=== PATIENT | female | born 1995 ===

== ENCOUNTER → 2023-01-09 07:49 | Outpatient (BNVA) | payer MEDICAID, SELFPAY | PROVIDERS: PCP Registered Nurse; Visit Provider Nurse Practitioner Family | DX: G47.19 Other hypersomnia (principal); R06.83 Snoring | CPT/HCPCS: 99202 ==

== ENCOUNTER → 2023-02-26 13:56 | Outpatient (REF) | payer MEDICAID, SELFPAY | LOC: HO.SL 13:56 | PROVIDERS: Visit Provider Nurse Practitioner Family | DX: G47.19 Other hypersomnia (principal); R06.83 Snoring | CPT/HCPCS: 95806 ==

== ENCOUNTER → 2023-02-26 14:21 | Outpatient (BNV) | payer MEDICAID, SELFPAY | PROVIDERS: Visit Provider Internal Medicine | DX: R06.83 Snoring (principal) | CPT/HCPCS: 95806 ==

== ENCOUNTER 2023-04-07 08:59 | Outpatient (AMB) | payer MEDICAID, SELFPAY ==
--- NOTE | 2023-04-07 09:08 | A.OFFVIS_ITS ---
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 The home sleep study result was significant for loud snoring. Total snoring episodes 397 and the duration with snoring was 288 min. There was no evidence of sleep apnea. The AHI was less than 1/hr and oxygen iftikhar was 91%. Pt reports that she started prazosin 1 mg, and can sleep without waking up in the middle of night. She can sleep 10 pm to 6-7 am. However, she still feels very sleepy during daytime. She tries not to take a nap to have better quality sleep at night. [facility] Surgical History (Updated 01/09/23 @ 08:13 by Estefania Uribe CMA) S/P LASIK surgery Family History (Updated 04/07/23 @ 09:14 by Estefania Uribe CMA) Mother Asthma Depression Fibromyalgia Carpal tunnel syndrome Raynaud disease Father No problems noted. Family/Other Carpal tunnel syndrome Review of Systems Const All systems reviewed & are unremarkable except as noted in HPI and below ENT Reports Normal hearing present Neuro Reports Normal hearing present Physical Exam Vital Signs: Last Vital Signs Pulse 72 04/07/23 09:14 BP 102/64 04/07/23 09:14 Pulse Ox 99 04/07/23 09:14 Oxygen Delivery Method Room Air 04/07/23 09:14 Const General: cooperative Nutritional Appearance: overweight Orientation/consciousness: patient oriented x3 Neck Neck: Yes full ROM and Yes supple Resp Effort & Inspection: normal respiratory effort and able to speak in complete sentences Neuro General: patient oriented x3, gait normal and moves all extremities Cranial nerves: Yes Bilaterally intact EOM present, Yes Normal facial strength present, Yes Midline tongue present, Yes Symmetric palate elevation present, Yes Normal hearing present, Yes Ability to bilaterally rotate head present and Yes Ability to bilaterally elevate shoulders present Cognition (Neuro): normal cognition Gait exam (Neuro): Normal gait present Motor exam (neuro): 5/5 motor strength present throughout, Pronator motor function not present and no tremor noted Psych Appearance: grossly normal Mental Status: mental status grossly normal Speech and movement: Normal speech and movement present Affect: normal affect Assessment & Plan Assessment & Plan (1) Fatigue: Code(s): R53.83 - Other fatigue (2) Excessive daytime sleepiness: Code(s): G47.19 - Other hypersomnia (3) Loud snoring: Code(s): R06.83 - Snoring Plan Advised patient to undergo MSLT test to r/o narcolepsy. Check labs to reversible causes of sleepiness and tiredness. Refer patient to ENT for snoring evaluation. Orders: Orders RT sleep testing - MSLT Today G47.19 - Other hypersomnia, R06.83 - Snoring Vitamin B12 and Folate Today E55.9 - Vitamin D deficiency, unspecified, R53.83 - Other fatigue TSH reflex Free T4 Today E55.9 - Vitamin D deficiency, unspecified, R53.83 - Other fatigue Vitamin D 25-OH (D2 and D3) Today E55.9 - Vitamin D deficiency, unspecified, R53.83 - Other fatigue Referrals Ear/Nose/Throat Referral R06.83 - Snoring Coding Level of Care Code Est Pt Level 3 (14568) Diagnoses Fatigue R53.83 Excessive daytime sleepiness G47.19 Loud snoring R06.83
[2023-04-07 09:14] VITALS: BP 102/64; PULSE 72; O2SAT 99
== END 2023-04-07 09:31 | disposition home or self-care (01) ==
PROVIDERS: PCP Registered Nurse; Visit Provider Nurse Practitioner Family
DX: R53.83 Other fatigue (principal); G47.19 Other hypersomnia; R06.83 Snoring
CPT/HCPCS: 99213

== ENCOUNTER → 2023-04-07 08:59 | Outpatient (BNVA) | payer MEDICAID, SELFPAY | PROVIDERS: PCP Registered Nurse; Visit Provider Nurse Practitioner Family | DX: G47.19 Other hypersomnia (principal); R53.83 Other fatigue; R06.83 Snoring | CPT/HCPCS: 99212; 99213 ==

== ENCOUNTER 2023-04-16 14:07 | Outpatient (REF) | payer MEDICAID, SELFPAY ==
[2023-04-16 18:26] LABS: TSH reflex Free T4 1.85 uIU/mL (0.32-4.0)
[2023-04-16 18:39] LABS: Folate 19.5 ng/mL (> or = 4.0); Vitamin B12 517 pg/mL (200-900)
[2023-04-23 15:08] LABS: Vitamin D 25-OH, D2 <4 ng/mL; Vitamin D 25-OH, D3 34 ng/mL; Vitamin D 25-OH, Total 34 ng/mL (30-100)
== END 2023-04-16 14:08 | disposition home or self-care (01) ==
LOC: HO.LAB 14:07
PROVIDERS: PCP Registered Nurse; Visit Provider Nurse Practitioner Family
DX: E55.9 Vitamin D deficiency, unspecified (principal); R53.83 Other fatigue
CPT/HCPCS: 36415; 82306; 82607; 82746; 84443

== ENCOUNTER 2023-07-10 08:57 | Outpatient (AMB) | payer MEDICAID, SELFPAY ==
--- NOTE | 2023-07-10 09:03 | A.OFFVIS_ITS ---
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 Pt reports [facility]. The home sleep study result was significant for loud snoring. Total snoring episodes 397 and the duration with snoring was 288 min. There was no evidence of sleep apnea. The AHI was less than 1/hr and oxygen iftikhar was 91%. MSLT ordered but patient is not scheduled yet. Pt stopped prazosin due to . She can sleep 10 pm to 6-7 am. However, she still feels very sleepy during daytime. She tries not to take a nap to have better quality sleep at night. Pt continues to endorse gasping arousals, and disrupted sleep. [facility] Surgical History (Updated 01/09/23 @ 08:13 by Estefania Uribe CMA) S/P LASIK surgery Family History (Updated 04/07/23 @ 09:14 by Estefania Uribe CMA) Mother Asthma Depression Fibromyalgia Carpal tunnel syndrome Raynaud disease Father No problems noted. Family/Other Carpal tunnel syndrome Social History (Updated 07/10/23 @ 09:06 by Estefania Uribe CMA) Alcohol intake: never Patient Tobacco Use Status: Never used Tobacco Review of Systems Const All systems reviewed & are unremarkable except as noted in HPI and below ENT Reports Normal hearing present Neuro Reports Normal hearing present Physical Exam Vital Signs: Last Vital Signs Pulse 78 07/10/23 09:06 BP 110/70 07/10/23 09:06 Pulse Ox 98 07/10/23 09:06 Oxygen Delivery Method Room Air 07/10/23 09:06 Const General: cooperative Nutritional Appearance: overweight Orientation/consciousness: patient oriented x3 Neck Neck: Yes full ROM and Yes supple Resp Effort & Inspection: normal respiratory effort and able to speak in complete sentences Neuro General: patient oriented x3, gait normal and moves all extremities Cranial nerves: Yes Bilaterally intact EOM present, Yes Normal facial strength present, Yes Midline tongue present, Yes Symmetric palate elevation present, Yes Normal hearing present, Yes Ability to bilaterally rotate head present and Yes Ability to bilaterally elevate shoulders present Cognition (Neuro): normal cognition Gait exam (Neuro): Normal gait present Motor exam (neuro): 5/5 motor strength present throughout, Pronator motor function not present and no tremor noted Psych Appearance: grossly normal Mental Status: mental status grossly normal Speech and movement: Normal speech and movement present Affect: normal affect Assessment & Plan Assessment & Plan (1) Fatigue: Code(s): R53.83 - Other fatigue (2) Excessive daytime sleepiness: Code(s): G47.19 - Other hypersomnia (3) Loud snoring: Code(s): R06.83 - Snoring Plan Advised patient to undergo MSLT test to r/o narcolepsy. Refer patient to ENT for snoring evaluation. Advised patient to try magnesium 400 mg qHS. Medications: New magnesium oxide 400 mg PO BEDTIME 30 tabs 6RF 30 days Coding Level of Care Code Est Pt Level 3 (42781) Diagnoses Fatigue R53.83 Excessive daytime sleepiness G47.19 Loud snoring R06.83
[2023-07-10 09:06] VITALS: BP 110/70; PULSE 78; O2SAT 98
== END 2023-07-10 09:26 | disposition home or self-care (01) ==
PROVIDERS: PCP Registered Nurse; Visit Provider Nurse Practitioner Family
DX: R53.83 Other fatigue (principal); G47.19 Other hypersomnia; R06.83 Snoring
CPT/HCPCS: 99213

== ENCOUNTER → 2023-07-10 08:57 | Outpatient (BNVA) | payer MEDICAID, SELFPAY | PROVIDERS: PCP Registered Nurse; Visit Provider Nurse Practitioner Family | DX: G47.19 Other hypersomnia (principal); R53.83 Other fatigue; R06.83 Snoring | CPT/HCPCS: 99212 ==

== ENCOUNTER → 2023-08-07 20:30 | Outpatient (REF) | payer MEDICAID, SELFPAY | LOC: HO.SL 20:30 | PROVIDERS: PCP Registered Nurse; Visit Provider Nurse Practitioner Family | DX: G47.19 Other hypersomnia (principal); R06.83 Snoring | CPT/HCPCS: 80307; 81001; 95805; 95810 ==

== ENCOUNTER → 2023-08-08 00:48 | Outpatient (BNV) | payer MEDICAID, SELFPAY | PROVIDERS: PCP Registered Nurse; Visit Provider Psychiatry & Neurology Neurology | DX: G47.19 Other hypersomnia (principal) | CPT/HCPCS: 95810 ==

== ENCOUNTER 2023-08-08 14:00 | Outpatient (REF) | payer MEDICAID, SELFPAY ==
[2023-08-08 14:14] LABS: Appearance Urine Cloudy; Color Urine Yellow; Glucose Urine UA Negative (Negative); Leukocyte Esterase Urine Trace (Negative); Nitrite Urine Negative (Negative); UMIC TRIGGER UA YES; Urine Blood Negative (Negative); Urine Ketones Negative (Negative); Urine Protein Negative (Neg-Trace)
[2023-08-08 14:16] LABS: Bacteria Urine 4+ (None Seen); Hyaline Casts Urine 0-2 /LPF (0-2); RBC Urine 0-2 /HPF (0-2); Squamous Epithelial Cell Urine 0-2 /HPF (0-2); WBC Urine 0-5 /HPF (0-5)
[2023-08-08 14:23] LABS: Amphetamine Screen Urine Not Detected (Not Detect); Barbiturates, Urine Not Detected (Not Detect); Benzodiazepines Screen Urine Not Detected (Not Detect); Cannabinoid Screen Urine Not Detected (Not Detect); Cocaine Screen Urine Not Detected (Not Detect); Fentanyl, urine Not Detected (Not Detect); Opiate Screen Urine Not Detected (Not Detect); Phencyclidine Screen Urine Not Detected (Not Detect)
== END 2023-08-08 14:01 | disposition home or self-care (01) ==
LOC: HO.LNP 14:00
PROVIDERS: Visit Provider Nurse Practitioner Family
DX: G47.19 Other hypersomnia (principal)
CPT/HCPCS: 80307; 81001